=== PATIENT | female | born 1985 | race Caucasian/White ===

== ENCOUNTER 2021-11-18 00:50 | Emergency (ER) | payer SELFPAY ==
[2021-11-18] MEDS ORDERED: METOCLOPRAMIDE 10 MG/2 ML INJ IV ONE (01:42)
[2021-11-18] MEDS ORDERED: diphenhydrAMINE 50 MG/ML VIAL IV ONE (01:42)
[2021-11-18] MEDS ORDERED: SODIUM CHLORIDE 0.9% 1000 ML 1,000 ML IV ONE (01:42)
[2021-11-18 02:27] LABS: Hematocrit 33.4 % (30.3-42.9); Hemoglobin 11.1 gm/dl (10.1-14.3); Mean Corpuscular HGB Conc 33 % (30-34); Mean Corpuscular Volume 95 fl (79-97); Platelet Count 137 K/mm3 (140-440); Red Blood Count 3.51 M/mm3 (3.65-5.03); Red Cell Distribution Width 13.8 % (13.2-15.2)
[2021-11-18 02:37] LABS: Alanine Aminotransferase 22 units/L (7-56); Albumin 3.1 g/dL (3.9-5); Blood Urea Nitrogen 6 mg/dL (7-17); Calcium 7.7 mg/dL (8.4-10.2); Hemolysis Index 10
[2021-11-18 02:39] LABS: BUN/Creatinine Ratio 20
[2021-11-18 04:53] LABS: Bacteria,Urine 2+ /HPF (Negative); Bilirubin,Urine NEG (Negative); Blood,Urine NEG (Negative); Color,Urine Yellow (Yellow); Mucus,Urine 2+ /HPF; Protein,Urine <15 mg/dL mg/dL (Negative); Urobilinogen,Urine < 2.0 mg/dL (<2.0)
--- NOTE | 2021-11-18 05:05 | Emergency Department Report ---
- General Chief Complaint: Upper Respiratory Infection Stated Complaint: COVID SX Source: patient Mode of arrival: Ambulatory Limitations: No Limitations - History of Present Illness Initial Comments: Patient is a A0 36-year-old female who is approximately 24 weeks gestation presented to the ED with complaint of acute onset persistent nasal and sinus congestion, severe frontal sinus pressure and headache, persistent dry cough, diffuse body aches and pains for the last 1 week, worse in the last 3 days. Patient also complains of nausea and vomiting intermittently for the last 3 days. Patient states that she has been taking [id number] medication with no relief. Patient denies fever, chills, abdominal pain, vaginal bleeding, sore throat, diarrhea, dysuria, urinary frequency and urgency, chest pain or shortness of breath and vision changes. MD Complaint: cough, rhinorrhea, nasal congestion, sinus pain -: Sudden, week(s) (1) Severity: severe Severity scale (0 -10): 7 Quality: sharp, aching Consistency: constant Improves With: nothing Worsens With: nothing Associated Symptoms: denies other symptoms, headache, rhinorrhea, nasal congestion, cough. denies: fever, chills, myalgias, sore throat, stiff neck, chest pain, shortness of breath, abdominal pain, nausea, diarrhea, dysuria, rash, confusion, right sweats, weight loss, epistaxis, hoarseness, ear pain - Related Data Home Medications Medication Instructions Recorded Confirmed Last Taken Levothyroxine [Synthroid] 25 mcg PO QAM 12/25/15 12/25/15 12/24/15 Previous Rx's Medication Instructions Recorded Last Taken Type Ibuprofen [Motrin 800 MG tab] 800 mg PO TID PRN #30 tablet 12/25/15 Unknown Rx oxyCODONE /ACETAMINOPHEN [Percocet 1 tab PO Q4HR #30 tablet 12/25/15 Unknown Rx 5/325 mg] Acetaminophen [Tylenol] 500 mg PO Q6HR PRN #30 tablet 11/18/21 Unknown Rx Azithromycin [Zithromax Z-DANDY] 250 mg PO DAILY #6 tablet 11/18/21 Unknown Rx Cetirizine HCl [Zyrtec 10mg tab] 10 mg PO DAILY #30 tablet 11/18/21 Unknown Rx Codeine Phosphate/Guaifenesin 10 ml PO Q8H PRN #120 ml 11/18/21 Unknown Rx [Guaifen-Codeine 200-20 mg/10Ml] Metoclopramide [Reglan] 10 mg PO TID PRN #30 tab 11/18/21 Unknown Rx Allergies Allergy/AdvReac Type Severity Reaction Status Date / Time No Known Allergies Allergy Verified 12/25/15 01:40 ED Review of Systems ROS: Stated complaint: COVID SX Other details as noted in HPI Constitutional: denies: chills, fever Eyes: denies: eye pain, eye discharge, vision change ENT: congestion, other (Frontal sinus pressure and headache). denies: ear pain, throat pain Respiratory: cough. denies: shortness of breath, wheezing Cardiovascular: denies: chest pain, palpitations Endocrine: no symptoms reported Gastrointestinal: denies: abdominal pain, nausea, vomiting, diarrhea Genitourinary: denies: urgency, dysuria, discharge Musculoskeletal: denies: back pain, joint swelling, arthralgia Skin: denies: rash, lesions Neurological: headache (Frontal sinus headache). denies: weakness, paresthesias Psychiatric: denies: anxiety, depression Hematological/Lymphatic: denies: easy bleeding, easy bruising ED Past Medical Hx - Past Medical History Previous Medical History?: No Hx Hypertension: No Hx Congestive Heart Failure: No Hx Diabetes: No Hx Deep Vein Thrombosis: No Hx Renal Disease: No Hx Sickle Cell Disease: No Hx Seizures: No Hx Asthma: No Hx COPD: No Hx HIV: No - Surgical History Past Surgical History?: No - Social History Smoking Status: Never Smoker - Medications Home Medications: Home Medications Medication Instructions Recorded Confirmed Last Taken Type Ibuprofen [Motrin 800 MG tab] 800 mg PO TID PRN #30 tablet 12/25/15 Unknown Rx Levothyroxine [Synthroid] 25 mcg PO QAM 12/25/15 12/25/15 12/24/15 History oxyCODONE /ACETAMINOPHEN [Percocet 1 tab PO Q4HR #30 tablet 12/25/15 Unknown Rx 5/325 mg] Acetaminophen [Tylenol] 500 mg PO Q6HR PRN #30 tablet 11/18/21 Unknown Rx Azithromycin [Zithromax Z-DANDY] 250 mg PO DAILY #6 tablet 11/18/21 Unknown Rx Cetirizine HCl [Zyrtec 10mg tab] 10 mg PO DAILY #30 tablet 11/18/21 Unknown Rx Codeine Phosphate/Guaifenesin 10 ml PO Q8H PRN #120 ml 11/18/21 Unknown Rx [Guaifen-Codeine 200-20 mg/10Ml] Metoclopramide [Reglan] 10 mg PO TID PRN #30 tab 11/18/21 Unknown Rx ED Physical Exam - General Limitations: No Limitations General appearance: alert, in no apparent distress - Head Head exam: Present: atraumatic, normocephalic, normal inspection - Eye Eye exam: Present: normal appearance, PERRL, EOMI Pupils: Present: normal accommodation - ENT ENT exam: Present: normal orophraynx, mucous membranes moist, TM's normal bilaterally, normal external ear exam, other (Grossly congested nasal passages; palpable frontal sinus tenderness) - Neck Neck exam: Present: normal inspection, full ROM. Absent: tenderness - Respiratory Respiratory exam: Present: normal lung sounds bilaterally. Absent: respiratory distress, wheezes, rales, stridor, chest wall tenderness, accessory muscle use, decreased breath sounds, prolonged expiratory - Cardiovascular Cardiovascular Exam: Present: normal rhythm, tachycardia, normal heart sounds. Absent: systolic murmur, diastolic murmur, rubs, gallop - GI/Abdominal GI/Abdominal exam: Present: soft, normal bowel sounds. Absent: distended, guarding, rebound, hyperactive bowel sounds, hypoactive bowel sounds, organomegaly, mass - Extremities Exam Extremities exam: Present: normal inspection, full ROM, normal capillary refill - Back Exam Back exam: Present: normal inspection, full ROM. Absent: tenderness, CVA tenderness (R), CVA tenderness (L), muscle spasm, paraspinal tenderness, vertebral tenderness - Neurological Exam Neurological exam: Present: alert, oriented X3, CN II-XII intact, normal gait, reflexes normal - Psychiatric Psychiatric exam: Present: normal affect, normal mood - Skin Skin exam: Present: warm, dry, intact, normal color. Absent: rash ED Course Vital Signs 11/18/21 11/18/21 11/18/21 00:56 00:57 05:09 Temperature 99.4 F Pulse Rate 123 H 127 H 117 H Respiratory 18 18 18 Rate Blood Pressure 107/62 Blood Pressure 86/44 [Right] O2 Sat by Pulse 99 99 99 Oximetry ED Medical Decision Making - Lab Data Result diagrams: 11/18/21 01:53 11/18/21 01:53 - Medical Decision Making This is a A0 36-year-old female who is approximately 24 weeks gestation presented to the ED with complaint of acute onset persistent nasal and sinus congestion, severe frontal sinus pressure and headache, persistent dry cough, diffuse body aches and pains for the last 1 week, worse in the last 3 days. Patient also complains of nausea and vomiting intermittently for the last 3 days. Patient states that she has been taking [id number] medication with no relief. In the ED, patient is alert and oriented x3 and is not in any distress but tachycardic in triage. Patient is crying during the physical exam because of severe headache. Patient was treated in the ED for headache, also given normal saline 1 L IV bolus x1. Lab test results were reviewed and are all nonactionable including urinalysis. On reevaluation, patient's headache resolved, tachycardia also improved with medication. Patient was discharged home on medications and advised to follow-up with her primary care physician in 7 to 10 days for reevaluation or return to the ED immediately if symptoms get worse. - Differential Diagnosis Sinusitis; URI; bronchitis; sinus headache; Critical care attestation.: If time is entered above; I have spent that time in minutes in the direct care of this critically ill patient, excluding procedure time. ED Disposition Clinical Impression: Acute upper respiratory infection, Sinus headache Acute frontal sinusitis Qualifiers: Recurrence: non-recurrent Qualified Code(s): J01.10 - Acute frontal sinusitis, unspecified Acute bronchitis Qualifiers: Bronchitis organism: unspecified organism Qualified Code(s): J20.9 - Acute bronchitis, unspecified Disposition: 01 HOME / SELF CARE / HOMELESS Is pt being admited?: No Does the pt Need Aspirin: No Condition: Stable Instructions: Cough, Adult, [id number], Sinusitis, Adult, [id number], Acute Bronchitis, Adult, Wfmw-[id number], Upper Respiratory Infection, Adult, [id number], Acute Bronchitis (ED) Additional Instructions: [place] la medicacin con alimentos, saniya muchos lquidos y crystal un seguimiento con wang mdico de atencin primaria u obstetra / gineclogo en 7 a 10 hand para ambar reevaluacin. Regrese al servicio de urgencias de inmediato si los sntomas empeoran. Prescriptions: Acetaminophen [Tylenol] 500 mg PO Q6HR PRN #30 tablet PRN Reason: Pain or fever Codeine Phosphate/Guaifenesin [Guaifen-Codeine 200-20 mg/10Ml] 10 ml PO Q8H PRN #120 ml PRN Reason: Cough Metoclopramide [Reglan] 10 mg PO TID PRN #30 tab PRN Reason: Nausea And Vomiting Azithromycin [Zithromax Z-DANDY] 250 mg PO DAILY #6 tablet Cetirizine HCl [Zyrtec 10mg tab] 10 mg PO DAILY #30 tablet Referrals: [facility] [Provider Group] - 7-10 days Time of Disposition: 05:03 Print Language: MONGOLIAN
[2021-11-18 05:13] VITALS: BP 86/44
[2021-11-18 06:07] LABS: Total Cells Counted 100
[2021-11-18 06:08] LABS: Platelet Estimate Consistent w Auto; RBC Morphology Normal
== END 2021-11-18 04:10 | disposition home or self-care (01) ==
LOC: ED 00:50
DX: O99.512 Diseases of the respiratory system complicating pregnancy, second trimester (principal); J06.9 Acute upper respiratory infection, unspecified; J01.10 Acute frontal sinusitis, unspecified; J20.9 Acute bronchitis, unspecified; Z79.899 Other long term (current) drug therapy; Z3A.24 24 weeks gestation of pregnancy
CPT/HCPCS: 36415; 80053; 81001; 85007; 85025; 96361; 96374; 96375; 99283; J1200; J2765; J7030; Q0162

== ENCOUNTER 2022-02-15 11:23 | Outpatient (CLI) | payer SELFPAY ==
[2022-02-15 12:03] VITALS: BP 109/72
[2022-02-15] MEDS ORDERED: LACTATED RINGERS 500 ML IV ONE ×2 (12:15→13:44)
[2022-02-15] MEDS: TERBUTALINE 1 MG/1 ML INJ SUB-Q SCH ×2 (13:55→15:37)
[2022-02-15 15:30] LABS: Bacteria,Urine 4+ /HPF (Negative); Bilirubin,Urine NEG (Negative); Blood,Urine MOD (Negative); Color,Urine Yellow (Yellow); Mucus,Urine FEW /HPF; Protein,Urine <15 mg/dL mg/dL (Negative); Urobilinogen,Urine < 2.0 mg/dL (<2.0)
[2022-02-15 16:06] LABS: Hematocrit 34.7 % (30.3-42.9); Hemoglobin 11.2 gm/dl (10.1-14.3); Mean Corpuscular HGB Conc 32 % (30-34); Mean Corpuscular Volume 83 fl (79-97); Platelet Count 151 K/mm3 (140-440); Red Blood Count 4.17 M/mm3 (3.65-5.03); Red Cell Distribution Width 16.2 % (13.2-15.2)
[2022-02-15 16:35] LABS: Alanine Aminotransferase 10 units/L (7-56); Albumin 3.5 g/dL (3.9-5); Blood Urea Nitrogen 7 mg/dL (7-17); Calcium 8.9 mg/dL (8.4-10.2); Hemolysis Index 7
[2022-02-15 16:38] LABS: BUN/Creatinine Ratio 18
[2022-02-15] MEDS ORDERED: LACTATED RINGERS 1,000 ML IV SCH (16:45)
[2022-02-15] MEDS ORDERED: POTASSIUM CHLORIDE ER 20 MEQ TAB PO ONE (18:00)
== END 2022-02-15 18:12 | disposition home or self-care (01) ==
LOC: TRG 11:23 → APU 11:25 → TRG 18:12
PROVIDERS: ATTEND Obstetrics & Gynecology
DX: O62.9 Abnormality of forces of labor, unspecified (principal); Z3A.37 37 weeks gestation of pregnancy
CPT/HCPCS: 36415; 59025; 80053; 81001; 85027; 96361; 96365; 96372; J0690; J3105; J7120; 87086; 96360

== ENCOUNTER 2022-02-16 09:53 | Inpatient (IN) | payer SELFPAY ==
[2022-02-16] MEDS ORDERED: FAMOTIDINE 20 MG/2 ML INJ IV SCH (10:38)
[2022-02-16] MEDS ORDERED: BICITRA ORAL LIQD 30ML PO SCH (10:38)
[2022-02-16] MEDS ORDERED: LACTATED RINGERS 2,000 ML ONE (10:38)
--- NOTE | 2022-02-16 10:44 | History and Physical Report ---
History of Present Illness Date of examination: 02/16/22 Date of admission: 02/16/22 Chief complaint: painful ctx History of present illness: at 37.2wks by LMP c/w U/S. PNC at [facility] in [place]. Pt was seen this morning in triage and sent home and now returns with painful contractions. Pt admits to movement, denies LOF or vag bleed. PNC labs with Rh neg and received rhogam on 12/19/21. A neg, antibody screen negative, rubella immune, HIV, RPR and HepBsAg all neg. GBS positive in the urine; hgb A1c initially 5.2 then 6.2 and pt curretnly taking metformin 500mg for abnormal 3hrgtt; GC/Chlam neg. Pt desires no future fertilization. Past History Past Medical History: other (Heart problem ? diagnosis; seen by [facility] and holter monitor given. NO meds; Gest DM on metformin; Hypothyroidism on l evothyroxine 75mcg daily) Past Surgical History: section (x2) Social history: no significant social history - Obstetrical History Expected Date of Delivery: 03/07/22 Actual Gestation: 37 Week(s) 2 Day(s) : 3 Hx # Term Pregnancies: 2 (both c/sections at term) Number of Living Children: 2 Medications and Allergies Allergies Allergy/AdvReac Type Severity Reaction Status Date / Time No Known Allergies Allergy Verified 12/25/15 01:40 Home Medications Medication Instructions Recorded Confirmed Last Taken Type Ibuprofen [Motrin 800 MG tab] 800 mg PO TID PRN #30 tablet 12/25/15 Unknown Rx Levothyroxine [Synthroid] 25 mcg PO QAM 12/25/15 12/25/15 12/24/15 History oxyCODONE /ACETAMINOPHEN [Percocet 1 tab PO Q4HR #30 tablet 12/25/15 Unknown Rx 5/325 mg] Acetaminophen [Tylenol] 500 mg PO Q6HR PRN #30 tablet 11/18/21 Unknown Rx Azithromycin [Zithromax Z-DANDY] 250 mg PO DAILY #6 tablet 11/18/21 Unknown Rx Cetirizine HCl [Zyrtec 10mg tab] 10 mg PO DAILY #30 tablet 11/18/21 Unknown Rx Codeine Phosphate/Guaifenesin 10 ml PO Q8H PRN #120 ml 11/18/21 Unknown Rx [Guaifen-Codeine 200-20 mg/10Ml] Metoclopramide [Reglan] 10 mg PO TID PRN #30 tab 11/18/21 Unknown Rx Nitrofurantoin [place]/M-Cryst 100 mg PO Q12HR 7 Days #14 capsule 02/15/22 Unknown Rx [Macrobid CAP] Active Meds: Active Medications Citric Acid/Sodium Citrate (Bicitra Oral Liqd 30ml) 30 ml PO ONCE ONE Stop: 02/16/22 10:39 Famotidine (Famotidine 20 Mg/2 Ml Inj) 20 mg IV ONCE ONE Stop: 02/16/22 10:39 Cefazolin Sodium (Ancef/Sterile Water 2 Gm/20 Ml) 2 gm in 20 mls @ 80 mls/hr IV PREOP NR; Protocol Lactated Ringer's (Lactated Ringers) 1,000 mls @ 2,250 mls/hr IV PREOP NICK Stop: 02/17/22 11:12 Oxytocin/Sodium Chloride (Pitocin/Ns 30 Unit/500ml) 30 units in 500 mls @ 0 mls/hr IV TITR NICK; Protocol Metoclopramide HCl (Metoclopramide 10 Mg/2 Ml Inj) 10 mg IV ONCE ONE Stop: 02/16/22 10:39 Review of Systems All systems: negative (painful ctx) - Vital Signs Vital signs: Vital Signs Pulse Pulse Ox 93 H 98 02/16/22 10:03 02/16/22 10:03 Temp Pulse Resp BP Pulse Ox 98.5 F 91 H 20 123/86 100 02/16/22 10:12 02/16/22 10:38 02/16/22 10:12 02/16/22 10:04 02/16/22 10:38 - Physical Exam Breasts: Positive: deferred Cardiovascular: Regular rate Lungs: Positive: Normal air movement Abdomen: Positive: soft Uterus: Positive: enlarged (non-tender, gravid) - Obstetrical FHR: category 1 Uterine Contraction Monitor Mode: External Cervical Dilatation: 3 Cervical Effacement Percentage: 100 station: 0 Uterine Contraction Pattern: Regular Uterine Contraction Intensity: Moderate Results All other labs normal. Assessment and Plan Term IUP at 37.2wks with previous c/section x2, now in labor; desires perm sterilization with valid tubal papers. Rh negative and received Rhogam. Gest DM and on metformin. GBS positive; H/O Cardiac problem, pt can't tell the dx and no records seen from [facility] 1. Admit for repeat c/section and BTL with valid papers seen; Consents obtained after the risks, benefits and alternatives of the procedure discussed. 2. Anesthesia notified. Desire pt's report papers from [facility] for diagnosis and tx 3. Will give rhogam post delivery if Rh+ fetus 4. Will Continue hypothyroidism avi post 5. Will repeat hgb A1c and determine if I will continue metformin Plan of care discussed, all question encouraged and answered in algerian. Will proceed to the OR
[2022-02-16] MEDS ORDERED: LACTATED RINGERS 1,000 ML IV SCH (10:45)
[2022-02-16] MEDS ORDERED: ceFAZolin/Water 2 GM/20 ML 2 GM/20 ML SYRINGE IV NR (11:00)
[2022-02-16] MEDS ORDERED: OXYTOCIN DRIP 30 UNITS/500 ML BAG IV SCH ×2 (11:00→17:10)
--- NOTE | 2022-02-16 11:16 | Anesthesia Consultation ---
Anesthesia Consult and Med Hx Date of service: 02/16/22 - Airway Anesthetic Teeth Evaluation: Good ROM Head & Neck: Adequate Mental/Hyoid Distance: Adequate Mallampati Class: Class II Intubation Access Assessment: Probably Good - Pulmonary Exam CTA: Yes - Cardiac Exam Cardiac Exam: RRR - Pre-Operative Health Status ASA Pre-Surgery Classification: ASA3, Emergency Proposed Anesthetic Plan: Spinal - Pulmonary Hx Asthma: No COPD: No Hx Pneumonia: No - Cardiovascular System Hx Hypertension: No Hx Cardia Arrhythmia: Yes (Holter monitor, unknown results trying to obtain records) Hx Heart Murmur: Yes - Central Nervous System Hx Seizures: No Hx Psychiatric Problems: No - Endocrine Hx Renal Disease: No Hx End Stage Renal Disease: No Hx Non-Insulin Dependent Diabetes: Yes Hx Hypothyroidism: Yes (Levothyrotin 25mcg qd) Hx Hyperthyroidism: No - Hematic Hx Anemia: No Hx Sickle Cell Disease: No - Other Systems Hx Alcohol Use: No
--- NOTE | 2022-02-16 11:17 | Anesthesia Day of Surgery ---
Anesthesia Day of Surgery - Day of Surgery Patient Examined: Yes Patient H&P Reviewed: Yes Patient is NPO: Yes
[2022-02-16] MEDS ORDERED: METOCLOPRAMIDE 10 MG/2 ML INJ IV ONE (11:38)
[2022-02-16 11:44] LABS: Alanine Aminotransferase 10 units/L (7-56); Albumin 3.5 g/dL (3.9-5); Blood Urea Nitrogen 7 mg/dL (7-17); Calcium 8.7 mg/dL (8.4-10.2); Hemolysis Index 3
[2022-02-16 11:47] LABS: BUN/Creatinine Ratio 23
[2022-02-16] MEDS ORDERED: WATER FOR IRRIG STERILE 1,500 ML BOTTLE IR ONE (12:20)
[2022-02-16] MEDS ORDERED: SODIUM CHLORIDE 0.9% IRR 1,500 ML BOTTLE IR ONE (12:20)
[2022-02-16] MEDS ORDERED: BUTORPHANOL 2 MG/1 ML INJ IV PRN (14:13)
[2022-02-16] MEDS ORDERED: fentaNYL 100 MCG/2 ML INJ IV PRN (14:13)
[2022-02-16] MEDS ORDERED: ACETAMINOPHEN 325 MG TAB PO PRN (14:13)
[2022-02-16] MEDS ORDERED: MINERAL OIL 30 ML ORAL LIQD PO PRN (14:13)
[2022-02-16] MEDS ORDERED: KETAMINE/STERILE WATER 50 MG/ML SYRINGE ONE (14:30)
[2022-02-16] MEDS ORDERED: PHENYLEPHRINE 10 MG/1 ML INJ SDV ONE (14:49)
[2022-02-16] MEDS ORDERED: SODIUM CHLORIDE 0.9% 100 ML ONE (14:49)
[2022-02-16] MEDS ORDERED: KETOROLAC 30 MG/1 ML INJ ONE (14:49)
[2022-02-16] MEDS ORDERED: dexAMETHasone 20 MG/5 ML VIAL ONE (14:49)
[2022-02-16] MEDS ORDERED: ONDANSETRON 4 MG/2 ML INJ ONE (14:49)
[2022-02-16] MEDS ORDERED: BUPIVACAINE/PF (0.5%) 5 MG/1 ML 30 ML VIAL INFILTRATI ONE (14:49)
--- NOTE | 2022-02-16 15:34 | Procedure Note ---
OB Delivery Note - Delivery Date of Delivery: 02/16/22 Surgeon: AMINATA STERLING Estimated blood loss: other (1602cc by QBL per nurse, more than my estimate) - Section Preop diagnosis: repeat , desires sterilization Postop diagnosis: other (extensive dense adhesions; partial placental abruption) section procedure: repeat low transverse (with extensive lysis of adhesions), bilateral tubal ligation (via salpingectomy) Disposition: floor Complications: none Narrative: Date: 02/16/22 Surgeon: Aminata Sterling MD Preop Dx: IUP at 37.2wks, previous section x2 now in labor, Declines TOLAC; Desires permanent sterilization with valid tubal papers. Gestational diabetes. Rh negative Postop Dx: same, partial placental abruption. Procedure : Repeat Low transverse section with extensive lysis of adhesions then bilateral tubal ligation via salpingectomy Anesthesia: Spinal Intake: 2500cc Output: 1000cc clear urine at the end of the procedure, previously concentrated when johnson cath placed EBL: 1602cc by QBL per nurse remote above my estimate After the risks, benefits and alternatives of procedure discussed, patient signed consents and was taken to the operating room. Pt was given spinal anesthesia. After same was adequate, patient was prepped and draped in the usual sterile fashion. Johnson catheter in place and draining concentrated urine initially that became clear at the end of the case. Pt was given prophylactic antibiotic per protocol and time out was done Pfannenstiel skin incision was made and taken sharply to the fascia and the incision extended using electrocautery. Superior edge of the fascia was grasped with jelena clamps and the rectus muscle using electrocautery. Lower portion of the fascia also using electrocautery. Rectus muscle in the midline and Peritoneal cavity entered sharply and there was b caio any room to place one finger. Extensive dissection done to give enough room for delivery of fetus. Upper abdomen with dense adhesion including anterior uterine serosa. Sharp dissection done in a sequential manner laterally and then the Lower uterine identified. This lower uterine segment with adhesions to bladder peritoneum noted therefore sharp dissection done to clear same enough to place bladder blade. Lower uterine segment then entered transversely and amniotic sac entered bluntly thru anterior placenta that was partially . Uterine incision extended using bandage scissors. delivered with head then left arm followed by lower right arm and then body, bulb suctioned, cord clamped and baby handed to waiting pediatricians. Remaining Placenta then delivered completely including fragments of amniotic membranes to lower uterine segment. The uterine cavity was then cleared of all clots and debri. The uterus was unable to be exteriorized and was closed in 2-3 layers using 0-monocryl suture in a running locked fashion and then an additional layer of imbrication suture. Then figure of 8 sutures to midline and areas where there was oozing. Good hemostasis noted. The patient still wanted permanent sterilization. Attention turned to left side of uterus and peritoneum and anterior uterine serosa was using electrocautery then the left fallopian tube was identified and grasped using ignacia clamp and the avascular portion of mesosalpinx entered and the distal tubal segment with fimbriae removed and the remaining free ends doubly ligated using 0-vicryl suture. Excellent hemostasis noted. The anterior uterine serosal adhesions were then taken down using metzenbaum scissors and free tie placed on any bleeders seen in the peritoneum and also hemostasis achieved with electrocautery as well. Electrocautery and figure of 8 sutures placed anterior to uterine serosa where adhesions of omentum were for added hemostasis. Right tube identified by palpation and same from peritoneum by sharp dissection and the tube followed out to it's fimbriated end. It was at this point that the right mesosalpinx avascular portion was entered and in a similar manner as the left, the right tube with fimbriae was excised and free ends remaining doubly ligated with 0-vicryl suture. The gutters were cleared of clots and debri, surgicel placed along the anterior uterine wall incision and hemostasis now excellent. The anterior peritoneum closed using 0-vicryl suture in a continuous fashion. The rectus muscle could only be closed and the lower abdomen due to wide separation where the extensive adhesions were and too much tension when I tried to reapproximate it. Rectus fascia closed with 0-vicryl suture in a continuous fashion from left to right and subcutaneous tissue copiously irrigated with normal saline and re- approximated using 3-0 vicryl] suture. Excellent hemostasis remains. The skin was closed with 4-0 monocryl] suture in a subcutaneous fashion and steristrips placed with pressure dressing. Sponge, lap, instrument and needle counts x4 were normal. Patient tolerated the procedure well and was taken to recovery room stable. Findings: Viable male , APGARS 8/9 and weight 3950g. Uterus adherent to anterior abdominal wall with omentum superior, anterior placenta with partial separation, normal tubes that was also adherent on the right side and normal ovaries bilaterally. INTAKE: 2500cc crystalloids OUTPUT: 1000cc clear urine EBL: 1602cc by QBL per nurse - Infant A at 1 minute: 8 at 5 minutes: 9 Infant Gender: Male (wt 3950g; Fluid unclear mixed with blood from partially placenta.)
[2022-02-16] MEDS ORDERED: ONDANSETRON 4 MG/2 ML INJ IV PRN (17:10)
[2022-02-16] MEDS ORDERED: D5W/LACTATED RINGERS 1,000 ML IV SCH (17:10)
[2022-02-16] MEDS ORDERED: HYDROCORTISONE 25 MG RECTAL SUPP PR PRN (17:10)
[2022-02-16] MEDS ORDERED: MAGNESIUM HYDROXIDE (MOM) ORAL LIQD UDC PO PRN (17:10)
[2022-02-16] MEDS ORDERED: SENNOSIDES 8.6 MG TAB PO PRN (17:10)
[2022-02-16] MEDS ORDERED: MORPHINE 4 MG/1 ML INJ IV PRN (17:10)
[2022-02-16] MEDS ORDERED: LANOLIN/ZINC/DIMETHICONE (LANSINOH) 7 GM TP PRN (17:10)
[2022-02-16] MEDS ORDERED: SIMETHICONE 80 MG CHEW TAB PO PRN (17:10)
[2022-02-16] MEDS ORDERED: IBUPROFEN 600 MG TAB PO PRN (17:10)
[2022-02-16] MEDS ORDERED: PROMETHAZINE 25 MG RECT SUPP PR PRN (17:10)
[2022-02-16] MEDS ORDERED: NALOXONE 0.4 MG/1 ML INJ IV PRN (17:10)
[2022-02-16] MEDS ORDERED: WITCH HAZEL/ GLYCERIN PAD TP PRN (17:10)
[2022-02-16 18:51] LABS: Hematocrit 30.8 % (30.3-42.9); Hemoglobin 10.2 gm/dl (10.1-14.3)
[2022-02-16 20:21] LABS: Hematocrit 31.5 % (30.3-42.9); Hemoglobin 10.2 gm/dl (10.1-14.3); Mean Corpuscular HGB Conc 32 % (30-34); Mean Corpuscular Volume 83 fl (79-97); Platelet Count 160 K/mm3 (140-440); Red Blood Count 3.78 M/mm3 (3.65-5.03); Red Cell Distribution Width 16.4 % (13.2-15.2)
[2022-02-16] MEDS: KETOROLAC 30 MG/1 ML INJ IV PRN (21:17)
[2022-02-16 23:27] LABS: Basophils % (Manual) 0 % (0.0-1.8); Eosinophils % (Manual) 0 % (0.0-4.3); Total Cells Counted 100
[2022-02-16 23:28] LABS: Macrocytosis Rare; Platelet Estimate Consistent w Auto
[2022-02-17] MEDS: oxyCODONE /ACETAMINOPHEN 5-325MG TAB PO PRN ×3 (00:47→18:03)
--- NOTE | 2022-02-17 08:57 | Progress Note ---
Assessment and Plan Continue routine care Encourage ambulation Tolerating general diet Sukhi Dejesus MD Subjective - Subjective Date of service: 02/17/22 Patient reports: appetite normal, voiding normally, pain well controlled, ambulating normally Leslie: doing well Objective - Vital Signs Latest vital signs: Vital Signs Temp Pulse Resp BP BP Pulse Ox Pulse Ox 02/17/22 08:00 98.4 F 99 H 20 105/67 97 98 02/17/22 04:03 97.7 F 91 H 18 101/64 98 02/17/22 00:49 98.2 F 97 H 20 105/74 97 02/17/22 00:47 22 02/16/22 21:17 16 02/16/22 21:00 99.0 F 97 H 18 106/69 98 02/16/22 19:50 98 02/16/22 17:11 98 02/16/22 16:46 98.5 F 91 H 16 111/66 96 02/16/22 16:15 108 H 21 103/66 99 02/16/22 16:00 97 H 15 97/58 99 02/16/22 15:45 101 H 20 107/76 99 02/16/22 15:30 96 H 20 108/66 99 02/16/22 15:25 102 H 18 106/69 97 02/16/22 15:20 103 H 17 113/73 99 02/16/22 15:15 101 H 21 112/71 96 02/16/22 15:10 98.1 F 100 H 14 130/77 100 02/16/22 11:33 99 H 100 02/16/22 11:28 94 H 100 02/16/22 11:27 97 H 94 02/16/22 11:23 88 99 02/16/22 11:18 101 H 100 02/16/22 11:13 95 H 99 02/16/22 11:08 97 H 100 02/16/22 11:03 91 H 98 02/16/22 10:58 92 H 96 02/16/22 10:54 89 94 02/16/22 10:53 89 99 02/16/22 10:48 94 H 99 02/16/22 10:45 107 H 94 02/16/22 10:43 87 98 02/16/22 10:38 91 H 100 02/16/22 10:35 77 86 02/16/22 10:33 101 H 94 02/16/22 10:28 75 88 02/16/22 10:26 82 88 02/16/22 10:23 82 87 02/16/22 10:21 98 H 93 02/16/22 10:18 83 75 L 02/16/22 10:15 80 94 02/16/22 10:13 87 99 02/16/22 10:12 98.5 F 20 100 02/16/22 10:08 95 H 98 02/16/22 10:04 90 123/86 02/16/22 10:03 93 H 98 Intake and Output 02/16/22 02/17/22 02/17/22 23:59 07:59 15:59 Intake Total 210 240 Output Total 1750 1640 Balance -1540 -1400 Intake: IV 110 Left Hand 10 ceFAZolin 2 GM In NaCl 0. 100 9% 100 ml @ 200 mls/hr IV Q8H [facility] Rx#:[id number] Oral 100 Intake, Free Water 240 Output: Urine 1750 1640 Indwelling Catheter 1750 1100 Void 540 Other: Total, Intake Amount 100 Total, Output Amount 600 440 # Voids Void 2 - Exam Breasts: Present: normal Cardiovascular: Present: Regular rate Lungs: Present: Clear to auscultation, Normal air movement Abdomen: Present: normal appearance, soft, normal bowel sounds Uterus: Present: fundal height below umbilicus Extremities: Present: normal Deep Tendon Reflex Grade: Normal +2 Incision: Present: normal, dry, intact, dressed - Labs Labs: Abnormal lab results 02/16/22 02/16/22 Range/Units 11:00 19:47 WBC 12.5 H (4.5-11.0) K/mm3 MCH 27 L (28-32) pg RDW 16.4 H (13.2-15.2) % Seg Neuts % (Manual) 96.0 H (40.0-70.0) % Lymphocytes % (Manual) 2.0 L (13.4-35.0) % Seg Neutrophils # Man 12.0 H (1.8-7.7) K/mm3 Lymphocytes # (Manual) 0.3 L (1.2-5.4) K/mm3 Sodium 133 L (137-145) mmol/L Carbon Dioxide 16 L (22-30) mmol/L Creatinine 0.3 L (0.6-1.2) mg/dL Glucose 111 H (65-100) mg/dL Alkaline Phosphatase 252 H (35-129) units/L Albumin 3.5 L (3.9-5) g/dL
[2022-02-17] MEDS: PRENATAL VIT27-FE FUMARATE-FOLIC ACID VIT TAB PO SCH (09:00)
[2022-02-17] MEDS: FERROUS SULFATE 325 MG TAB PO SCH (09:00)
[2022-02-17] MEDS: KETOROLAC 30 MG/1 ML INJ IV PRN (12:28)
--- NOTE | 2022-02-17 13:21 | Post Anesthesia Evaluation ---
- Post Anesthesia Evaluation Patient Participated: Yes Airway Patent: Yes Stable Respiratory Function: Yes Nausea/Vomiting: No Temp > 96.8F: Yes Pain Manageable: Yes Adequeate Hydration: Yes Anesthesia Complications: No Block Receding Appropriately: Yes
[2022-02-18] MEDS: oxyCODONE /ACETAMINOPHEN 5-325MG TAB PO PRN ×2 (02:40→11:04)
--- NOTE | 2022-02-18 07:49 | Progress Note ---
Subjective - Subjective Date of service: 02/18/22 Interval history: Pt seen and examined on AM rounds AAOx3 PE: incision c/d/i FROM neg ava's sign bilaterally labs stable plan for today: routine Postop care DC home tomorrow Yodit Dejesus MD Patient reports: appetite normal, voiding normally, pain well controlled, ambulating normally [place]: doing well Objective - Vital Signs Latest vital signs: Vital Signs Temp Pulse Resp BP Pulse Ox Pulse Ox 02/18/22 02:40 16 02/18/22 00:15 98.7 F 89 18 95/52 96 02/17/22 23:00 98 02/17/22 15:49 98.3 F 93 H 20 101/63 94 02/17/22 12:16 98.5 F 88 20 106/63 97 02/17/22 08:00 98.4 F 99 H 20 105/67 97 98 Intake and Output 02/17/22 02/17/22 02/18/22 15:59 23:59 07:59 Intake Total 200 240 240 Output Total 500 Balance -300 240 240 Intake: Oral 200 240 240 Output: Urine 500 Void 500 Other: Total, Intake Amount 200 120 240 Total, Output Amount 500 # Voids Void 1 1 1
--- NOTE | 2022-02-18 09:27 | Discharge Summary ---
Providers - Providers Date of Admission: 02/16/22 14:13 Date of discharge: 02/18/22 Attending physician: REBECA STERLING Primary care physician: REBECA STERLING Hospitalization Reason for admission: section Delivery: Procedure: bilateral tubal ligation, repeat low transverse Discharge diagnosis: IUP at term delivered Condition at discharge: Stable Disposition: 01 HOME / SELF CARE / HOMELESS Plan - Discharge Medications Prescriptions: Ibuprofen [Motrin] 800 mg PO Q8HR PRN 21 Days #40 tablet PRN Reason: Pain, Moderate (4-6) oxyCODONE /ACETAMINOPHEN [Percocet 5/325] 1 tab PO Q4HR PRN 21 Days #30 tab PRN Reason: Pain , Severe (7-10) - Provider Discharge Summary Activity: no sex for 6 weeks Diet: routine Additional instructions: [] Smoking cessation referral if applicable(refer to patient education folder for contact #) [] Refer to [facility] Booklet Call your doctor immediately for: * Fever > 100.5 * Heavy vaginal bleeding ( >1 pad per hour) * Severe persistent headache * Shortness of breath * Reddened, hot, painful area to leg or breast * Drainage or odor from incision. * Keep incision clean and dry at all times and follow doctor's instructions regarding bathing/showering - Follow up plan Follow up: REBECA STERLING MD [Primary Care Provider] - 7 Days
[2022-02-18] MEDS: FERROUS SULFATE 325 MG TAB PO SCH (11:02)
[2022-02-18] MEDS: PRENATAL VIT27-FE FUMARATE-FOLIC ACID VIT TAB PO SCH (11:03)
[2022-02-18] MEDS: IBUPROFEN 800 MG TAB PO PRN ×2 (11:03→16:55)
[2022-02-19] MEDS: oxyCODONE /ACETAMINOPHEN 5-325MG TAB PO PRN (02:09)
[2022-02-19] MEDS: PRENATAL VIT27-FE FUMARATE-FOLIC ACID VIT TAB PO SCH (11:22)
[2022-02-19] MEDS: FERROUS SULFATE 325 MG TAB PO SCH (11:22)
[2022-02-19] MEDS: IBUPROFEN 800 MG TAB PO PRN (11:23)
[2022-02-19 12:18] VITALS: BP 103/63
== END 2022-02-19 13:20 | disposition home or self-care (01) | DRG 783 ==
LOC: TRG 09:53 → APU 09:55 → TRG 11:30 → APU 11:33 → UNDOADMIN 11:33 → APU 11:45 → OB 16:41
PROVIDERS: ADMIT Obstetrics & Gynecology; ATTEND Obstetrics & Gynecology
PROC: 10D00Z1 Extraction of Products of Conception, Low, Open Approach (ICD-10-PCS; principal; 2022-02-16)
PROC: 0UB70ZZ Excision of Bilateral Fallopian Tubes, Open Approach (ICD-10-PCS; 2022-02-16)
PROC: 3E0234Z Introduction of Serum, Toxoid and Vaccine into Muscle, Percutaneous Approach (ICD-10-PCS; 2022-02-17)
DX: O24.429 Gestational diabetes mellitus in childbirth, unspecified control (principal); O45.93 Premature separation of placenta, unspecified, third trimester; O34.211 Maternal care for low transverse scar from previous cesarean delivery; Z3A.37 37 weeks gestation of pregnancy; Z37.0 Single live birth; Z20.822 Contact with and (suspected) exposure to COVID-19; O26.893 Other specified pregnancy related conditions, third trimester; Z67.11 Type A blood, Rh negative; O99.824 Streptococcus B carrier state complicating childbirth; O99.284 Endocrine, nutritional and metabolic diseases complicating childbirth; E03.9 Hypothyroidism, unspecified; O99.62 Diseases of the digestive system complicating childbirth; K66.0 Peritoneal adhesions (postprocedural) (postinfection)
CPT/HCPCS: 36415; 80053; 85007; 85014; 85018; 85025; 85461; 86850; 86900; 86901; 87086; 99211; G0378; J3490; J7060; J7121; C1765; G0463; J0690; J1100; J1885; J2370; J2405; J2765; J2790; U0003

== ENCOUNTER 2022-07-19 12:21 | Outpatient (CLI) | payer OTHER ==
[2022-07-19 13:16] LABS: Basophils % (Auto) 0.3 % (0.0-1.8); Hematocrit 43.4 % (30.3-42.9); Hemoglobin 14.6 gm/dl (10.1-14.3); Lymphocytes # (Auto) 1.6 K/mm3 (1.2-5.4); Lymphocytes % (Auto) 33.5 % (13.4-35.0); Mean Corpuscular HGB Conc 34 % (30-34); Mean Corpuscular Volume 92 fl (79-97); Monocytes # (Auto) 0.4 K/mm3 (0.0-0.8); Monocytes % (Auto) 8.4 % (0.0-7.3); Platelet Count 181 K/mm3 (140-440); Red Blood Count 4.73 M/mm3 (3.65-5.03); Red Cell Distribution Width 14.6 % (13.2-15.2)
[2022-07-19 13:26] LABS: Mucus,Urine FEW /HPF
[2022-07-19 13:37] LABS: Color,Urine Straw (Yellow)
[2022-07-19 14:07] LABS: Alanine Aminotransferase 18 units/L (7-56); Albumin 4.6 g/dL (3.9-5); Blood Urea Nitrogen 12 mg/dL (7-17); Calcium 9.3 mg/dL (8.4-10.2); Chol/HDL Ratio 5.27 %; HDL Cholesterol 47 mg/dL (40-59); Hemolysis Index 8; LDL Cholesterol,Direct 178 mg/dL (50-130)
[2022-07-19 14:08] LABS: BUN/Creatinine Ratio 24
== END 2022-07-19 12:22 | disposition home or self-care (01) ==
LOC: LABHHL 12:21
PROVIDERS: ATTEND Internal Medicine
DX: Z00.00 Encounter for general adult medical examination without abnormal findings (principal); E55.9 Vitamin D deficiency, unspecified; R73.03 Prediabetes; E78.5 Hyperlipidemia, unspecified; E03.9 Hypothyroidism, unspecified; R94.5 Abnormal results of liver function studies; N39.0 Urinary tract infection, site not specified
CPT/HCPCS: 36415; 80053; 80061; 81001; 82306; 83036; 84443; 85025